=== PATIENT | male | born 1940 | race Caucasian/White ===

== ENCOUNTER 2016-12-20 06:02 | Day surgery (SDC) | payer MEDICARE, BC ==
[2016-12-20] MEDS ORDERED: CYCLOPENTOLATE 1% OPHTH DROPS 2 ML ONE (06:30)
[2016-12-20] MEDS ORDERED: KETOROLAC 0.45% OPHTH DROPS ONE (06:30)
[2016-12-20] MEDS ORDERED: PHENYLEPHRINE 2.5% OPHTH 2 ML DROPS ONE (06:30)
[2016-12-20] MEDS ORDERED: PROPARACAINE 0.5% OPHTH DROPS 15 ML ONE (06:31)
[2016-12-20] MEDS ORDERED: PHENYLEPHRINE 2.5% OPHTH 2 ML DROPS OPTH ONE (06:40)
[2016-12-20] MEDS ORDERED: CYCLOPENTOLATE 1% OPHTH DROPS 2 ML OPTH ONE (06:40)
[2016-12-20] MEDS ORDERED: PROPARACAINE 0.5% OPHTH DROPS 15 ML OPTH ONE ×2 (06:40→07:31)
[2016-12-20] MEDS ORDERED: KETOROLAC 0.45% OPHTH DROPS OPTH ONE (06:40)
[2016-12-20] MEDS ORDERED: LACTATED RINGERS 500 ML IV ONE (06:44)
[2016-12-20] MEDS ORDERED: TRIAMCINOLONE PF 40 MG/ML VIAL ONE (07:20)
[2016-12-20] MEDS ORDERED: ACETYLCHOLINE 20 MG/2 ML KIT IO ONE (07:20)
[2016-12-20] MEDS ORDERED: BRIMONIDINE 0.1% OPHTH DROPS 5 ML ONE (07:23)
[2016-12-20] MEDS ORDERED: TIMOLOL 0.5% OPHTH DROPS ONE (07:24)
[2016-12-20] MEDS ORDERED: BRIMONIDINE 0.2% OPHTH DROPS 5 ML ONE (07:25)
[2016-12-20] MEDS ORDERED: CHONDR SULF/HYALURONATE SYRINGE IO ONE (07:41)
[2016-12-20] MEDS ORDERED: TIMOLOL 0.5% OPHTH DROPS OPTH ONE (07:41)
[2016-12-20] MEDS ORDERED: EPINEPHrine 1 MG/ML AMP IVP ONE (07:41)
[2016-12-20] MEDS ORDERED: BRIMONIDINE 0.2% OPHTH DROPS 5 ML OPTH ONE (07:41)
[2016-12-20] MEDS ORDERED: TRIAMCIN/MOXIFLOX/VANCO 1 ML VIAL IO ONE ×2 (07:42)
[2016-12-20] MEDS ORDERED: BSS/LIDOCAINE/EPINEPHRINE 1 ML SYRINGE IO ONE ×2 (07:42)
[2016-12-20] MEDS ORDERED: PROPOFOL 200 MG/20 ML VIAL IVP ONE (07:46)
[2016-12-20] MEDS ORDERED: MIDAZOLAM 2 MG/2 ML VIAL IVP ONE (07:46)
[2016-12-20] MEDS ORDERED: LIDOCAINE-PF 4% 5 ML AMP SUBQ ONE (07:46)
[2016-12-20 08:18] VITALS: BP 112/60
--- NOTE | 2016-12-20 09:43 | OPERATIVE REPORT ---
DATE OF SURGERY: 12/20/2016 00:00:00 PREOPERATIVE DIAGNOSIS: Visually significant cataract, left eye. Cataract surgery was performed on th e right eye by Dr. Rick some time in 2009. POSTOPERATIVE DIAGNOSIS: Visually significant cataract, left eye. Cataract surgery was performed on t he right eye by Dr. Rick some time in 2009. PROCEDURE: Phacoemulsification with posterior chamber intraocular lens implant, left eye. SURGEON: Andrew Miner MD ANESTHESIA: Monitored anesthesia care. COMPLICATIONS: None. 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 Best corrected visual acuity was 20/40 with glare to 20/200 in the left eye. Indications for surgery were overall decrease in vision and a very pronounce d "fuzzy" vision in the left eye. He was consented at length concerning the risks and benefits of cat aract surgery after which he expressed a desire to proceed with surgery. OPERATIVE PROCEDURE: The patient was taken into OR #2 and placed under monitored anesthesia care. A s urgical time-out was conducted confirming correct patient, correct procedure and correct surgical sit e. He was given topical anesthesia and then prepped and draped in the usual sterile fashion. The eye was entered at the 6- and 3 o'clock positions. Intracameral Shugarcaine was injected into the anterio r chamber followed by Viscoat. Plan was to use iris hooks as this gentleman takes Flomax and has blue irises, but he was very well dilated and the iris did not appear to move when fluid was injected int o the anterior chamber so it was elected not to use the iris hooks. A continuous tear curvilinear cap sulorrhexis was performed. The nucleus was hydrodissected and phacoemulsified. The cortex was evacuat ed using automated infusion aspiration. Provisc was injected in the capsular bag and a 19.5 diopter i ntraocular lens was inserted into the bag. Approximately 0.9 mL of a mixture of triamcinolone, moxifl oxacin, and vancomycin was injected subconjunctivally in the superior quadrant for infection and infl ammation prophylaxis. I/A was used to evacuate the viscoelastic materials. The eye was inflated to ph ysiologic pressure using balanced salt solution and found to be watertight. The patient was taken fro m the operating room in good condition and given postoperative instructions. JOB #: [id number] EXT JOB #:[id number]
== END 2016-12-20 06:03 | disposition home or self-care (01) ==
LOC: SDS 06:02
PROVIDERS: ATTEND Ophthalmology
PROC: 08RK3JZ Replacement of Left Lens with Synthetic Substitute, Percutaneous Approach (ICD-10-PCS; principal; 2016-12-20 07:30)
DX: E11.36 Type 2 diabetes mellitus with diabetic cataract (principal); H25.812 Combined forms of age-related cataract, left eye; Z88.0 Allergy status to penicillin; I48.91 Unspecified atrial fibrillation; I10 Essential (primary) hypertension; Z87.891 Personal history of nicotine dependence; Z79.82 Long term (current) use of aspirin; Z79.84 Long term (current) use of oral hypoglycemic drugs
CPT/HCPCS: 66984; A9270; V2632